=== PATIENT | male | born 1950 | race Caucasian/White ===

== ENCOUNTER 2017-11-07 15:02 | Emergency (ER) | payer MEDICARE, BC ==
[2017-11-07 15:50] VITALS: BP 143/72
--- NOTE | 2017-11-07 16:30 | UC ---
Skin Complaint HPI - HPI Summary HPI Summary: Pt c/o gradual onset of pain , swelling and erythema at injection site on left anterior thigh. Pt administers testosterone injections to self and did so on . Pt states that area distal to injection site has become increasingly swollen, tender and erythematous. Pt has been elevating leg and reports that elevation helps reduce swelling but erythema is worsening. Also, c/o generalized malaise - History of Current Complaint Chief Complaint: UCLowerExtremity Time Seen by Provider: 11/07/17 16:20 Stated Complaint: L LEG - SWOLLEN AND PAINFUL Hx Obtained From: Patient Onset/Duration: Gradual Onset, Lasting Days, Still Present, Worse Since - onset 4 days ago Skin Exposure Onset/Duration: Days Ago Timing: Constant Onset Severity: Moderate Current Severity: Moderate Pain Intensity: 8 Location: Discrete Character: Swelling, Pain, Redness Aggravating Factor(s): Touch Alleviating Factor(s): Other - elevation Associated Signs & Symptoms: Positive: Tenderness - Allergy/Home Medications Allergies/Adverse Reactions: Allergies Allergy/AdvReac Type Severity Reaction Status Date / Time No Known Allergies Allergy Verified 11/07/17 15:39 Home Medications: Home Medications Apixaban* [Eliquis*] 5 mg PO DAILY 11/07/17 [History Confirmed 11/07/17] Atorvastatin* [Lipitor 20 MG*] 20 mg PO DAILY 11/07/17 [History Confirmed ] Carvedilol TAB* [Coreg TAB*] 25 mg PO BID 11/07/17 [History Confirmed 11/07/17] Lisinopril TAB* [Prinivil TAB 5 MG*] 5 mg PO DAILY 11/07/17 [History Confirmed 11/07/17] Omeprazole CAP* [Prilosec CAP* 20 MG] 20 mg PO BID 11/07/17 [History Confirmed 11/07/17] Spironolactone TAB* [Aldactone TAB 25 MG*] 25 mg PO DAILY 11/07/17 [History Confirmed 11/07/17] Testosterone Cypionate (NF) 200 mg IM DAILY 11/07/17 [History Confirmed 11/07/17 ] Review of Systems Constitutional: Fatigue Skin: Negative Eyes: Negative ENT: Negative Respiratory: Negative Cardiovascular: Negative Gastrointestinal: Negative Genitourinary: Negative Motor: Decreased ROM - left knee secondary to swelling and pain Neurovascular: Negative Musculoskeletal: Arthralgia, Decreased ROM - left knee, Edema Neurological: Negative Psychological: Negative Is Patient Immunocompromised?: No All Other Systems Reviewed And Are Negative: Yes PMH/Surg Hx/FS Hx/Imm Hx Previously Healthy: Yes Cardiovascular History: Cardiac Disease, Atrial Fibrillation - Surgical History Surgical History: Yes Surgery Procedure, Year, and Place: 2 stents. hernia - Family History Known Family History: Positive: Cardiac Disease - Social History Occupation: Retired Lives: With Family Alcohol Use: None Substance Use Type: None Smoking Status (MU): Never Smoked Tobacco Have You Smoked in the Last Year: No Physical Exam Triage Information Reviewed: Yes Vital Signs: Initial Vital Signs Temp 97.8 F 11/07/17 15:44 Pulse 86 11/07/17 15:44 Resp 18 11/07/17 15:44 BP 143/72 11/07/17 15:44 Pulse Ox 100 11/07/17 15:44 Vital Signs Reviewed: Yes Eye Exam: Normal ENT Exam: Normal Dental Exam: Normal Neck exam: Normal Respiratory Exam: Normal Cardiovascular Exam: Normal Cardiovascular: Positive: RRR Musculoskeletal: Positive: ROM Limited @ - secondary to discomfort and swelling left knee, Edema @ - left knee generalized Neurological Exam: Normal Psychological Exam: Normal Skin Exam: Other - erytheam ~ 8 cm diamater area left knee that extends proximal alog anterior thigh. erythematous area is warm to touch Course/Dx - Differential Diagnoses - Skin Complaint Differential Diagnoses: Cellulitis, Other - DVT - Diagnoses Provider Diagnoses: cellulitis. localized allergic reaction Discharge - Sign-Out/Discharge Documenting (check all that apply): Patient Departure All imaging exams completed and their final reports reviewed: No Studies - Discharge Plan Condition: Stable Disposition: HOME Prescriptions: Cephalexin CAP* [Keflex 500 CAP*] 500 mg PO Q8H #30 cap Cetirizine* [ZyrTEC 10 MG TAB*] 10 mg PO DAILY #10 tab Patient Education Materials: Cellulitis (ED) Referrals: No Primary Care Phys,NOPCP [Primary Care Provider] - Additional Instructions: Please follow up with your urologist and pcp as soon as possible. Please note if your symptoms worsen please go directly to the emergency department for further testing and evaluation - Billing Disposition and Condition Condition: STABLE Disposition: Home
== END 2017-11-07 16:37 | disposition home or self-care (01) ==
LOC: UCCORT 15:02
DX: L03.116 Cellulitis of left lower limb (principal); T78.40XA Allergy, unspecified, initial encounter; X58.XXXA Exposure to other specified factors, initial encounter; I48.91 Unspecified atrial fibrillation
CPT/HCPCS: 99202; G0463